=== PATIENT | male | born 1970 | race Caucasian/White ===

== ENCOUNTER 2017-06-23 22:38 | Emergency (ER) | payer OTHER ==
[2017-06-23 22:59] VITALS: RESP 18
[2017-06-23] MEDS ORDERED: IOPAMIDOL (ISOVUE 370) 100 ML BTL IV ONE (23:14)
--- NOTE | 2017-06-23 23:22 | EDPHY ---
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 He is currently resident at [facility]. Tonight while he was laying in bed, he developed some left posterior neck pain, then and left temporal headache as well as pain behind the left eye. It was sharp and constant, nonradiating. He then noticed that the left anterior portion of his neck "felt funny and became painful." Nurses checked his blood pressure which was systolic 160 and diastolic 100. He was given 2 Aleve and 2 Lisinopril tablets. Within 30 minutes he felt like his pain had decreased from 10/10 to 5/ 10. Currently taking aspirin daily. He is anxious as he is to be discharged home on Monday as he has been making great progress. Patient also reports that he worked really hard in physical therapy today may have over did it. Modifying Factors: Aleve and Lisinopril with moderate relief Comment: ROS: Eyes: No blurred vision Respiratory: No shortness of breath, no cough Cardiovascular: No chest pain Gastrointestinal: No nausea, no vomiting no diarrhea Genitourinary: No dysuria Extremities: No myalgias Neurologic: No weakness, no numbness Skin: No rashes Hematologic: No bruising, no bleeding MEDICAL/SURGICAL HISTORY: Mass cell activation syndrome, depression, allergic rhinitis Tonsillectomy, microdiskectomy (Priscilla Bang) Physical Exam: CONSTITUTIONAL: Pleasant adult white male, slightly anxious, awake and alert, no obvious distress HEENT: Atraumatic and normocephalic, PERRL, EOMI. Tympanic membranes clear. Oropharynx clear, no exudate and moist pink mucosa. Airway patent. No temporal tenderness. NECK: supple, mild left trapezius reproducible tenderness with palpation, no carotid bruits appreciated, No lymphadenopathy. No meningismus. Cardiovascular: Normal S1/S2, regular rate, regular rhythm, without murmur rub or gallop. PULMONARY/CHEST: Symmetrical and nontender. Clear to auscultation bilaterally Good air movement. No accessory muscle usage. ABDOMEN: Soft, nondistended, nontender, no rebound, no guarding, no peritoneal signs, no masses or organomegaly. No CVAT. EXTREMITIES: 2/2 pulses, no deformities, no clubbing, no cyanosis or edema. NEUROLOGICAL: GCS 15. Mild expressive aphasia noted. Did not test vision. SKIN: Warm and dry, no erythema. no rash. Good capillary refill. (Priscilla Bang) Constitutional: Initial Vital Signs Temperature (C) 36.5 C 06/23/17 22:57 Heart Rate 87 06/23/17 22:57 Respiratory Rate 18 06/23/17 22:57 Blood Pressure 156/95 H 06/23/17 22:57 O2 Sat (%) 96 06/23/17 22:57 O2 Delivery Mode Room Air Allergies/Adverse Reactions: divalproex sodium [From Depakote] Allergy (Unknown, Verified 04/23/16 10:58) Other-Enter Comments Home Medications: Medication Instructions Recorded LORAZEPAM 12/04/09 Nortriptyline HCl 12/04/09 Remeron 12/04/09 Cristel Allergy 04/23/16 Zantac 04/23/16 Aspirin 325 mg (*) 06/23/17 Lisinopril 5 mg PO DAILY #10 tablet 06/24/17 traMADol [Ultram 50 mg (*)] 50 mg PO Q4 PRN #12 tab 06/24/17 Medical Decision Making - Diagnostics Imaging Results: Imaging Impressions Head CTA 06/23/17 22:56 Impression: 1. Slight improvement in contrast opacification of the distal left vertebral artery with persistent occlusion/dissection from C1-C2 through the craniocervical junction. 2. Otherwise stable CT angio head and neck. Stenoses are calculated using [place] Symptomatic Carotid Endarterectomy Trial (NASCET) criteria. Findings discussed with Priscilla Bang 06/23/2017 at 2350. Neck CTA 06/23/17 22:57 Impression: 1. Slight improvement in contrast opacification of the distal left vertebral artery with persistent occlusion/dissection from C1-C2 through the craniocervical junction. 2. Otherwise stable CT angio head and neck. Stenoses are calculated using [place] Symptomatic Carotid Endarterectomy Trial (NASCET) criteria. Findings discussed with Priscilla Bang 06/23/2017 at 2350. ED Course/Re-evaluation: CTA head, CTA neck, IV medication, labs Appears to be at neurological baseline and blood pressure stable upon arrival. Given IV Dilaudid for headache Afebrile. no systemic signs. [id number] Brower, truer pinion and wheel for [facility]. Advised her of the negative CTA findings and that the patient's blood pressure now is 136/97. Goal blood pressure is less than or equal to 140/90. Will start low-dose lisinopril daily with close follow-up with primary care provider and Neurology. (Priscilla Bang) Differential Diagnosis: Headache including but not limited to progression of vertebral artery dissection , subarachnoid hemorrhage, migraine headache, tension headache and infectious causes such as meningitis, pharyngitis and sinusitis. (Priscilla Bang) Other Provider: ED PA DICTATION I evaluated and participated in the management of the patient. I also evaluated the patient independently. My co-signature indicates that I have reviewed this chart and I agree with the findings and plan of care as documented. My personal H&P findings include: 46-year-old male coming in from acute rehab with headache and neck pain, recently admitted to the hospital for vertebral artery dissection, received tPA, has been doing well at rehab. He has no new neurologic deficits. CTA of head and neck was performed showing no acute changes. Blood pressure was slightly elevated here. We have spoken with the rehab with plans for blood pressure control patient can be discharged. (Clementina Bonner) - Data Points Laboratory Results: 06/23/17 23:00 POC Hgb 16.3 gm/dL gm/dL (13.7-17.5) POC Hct 48 % % (40-51) POC Sodium 143 mEq/L mEq/L (134-144) POC Potassium 3.4 mEq/L mEq/L (3.3-5.0) POC Chloride 103 mEq/L mEq/L (97-110) POC BUN 13 mg/dL mg/dL (7-23) POC Creatinine 0.9 mg/dL mg/dL (0.7-1.3) POC Glucose 107 mg/dL H mg/dL (70-100) Medications Given: Discontinued Medications Hydromorphone HCl (Dilaudid) 0.5 mg IVP EDNOW ONE Stop: 06/23/17 23:26 Last Admin: 06/23/17 23:42 Dose: 0.5 mg Point of Care Test Results: 06/23/17 23:00 POC Sodium 143 POC Potassium 3.4 POC Chloride 103 POC BUN 13 POC Creatinine 0.9 POC Glucose 107 H Departure - Departure Disposition: Home, Routine, Self-Care Clinical Impression: History of dissection of artery, Elevated blood pressure reading Headache Qualifiers: Headache type: tension-type Headache chronicity pattern: acute headache Intractability: not intractable Qualified Code(s): G44.209 - Tension-type headache, unspecified, not intractable Clinical Impression: (Ruled Out): Vertebral artery dissection, History of chronic dissection of thoracic aorta Condition: Good Instructions: Hypertension (ED), General Headache (ED) Additional Instructions: Maintain your blood pressure equal to or less than 140/90. Take lisinopril 5 mg daily as needed for elevated blood pressure. Monitor blood pressure daily. Follow up with Neurology as scheduled. Referrals: Yair Arreola DO [Medical Doctor] - 1-2 days without fail Prescriptions: Lisinopril 5 mg PO DAILY #10 tablet traMADol [Ultram 50 mg (*)] 50 mg PO Q4 PRN #12 tab PRN Reason: Pain, Moderate
[2017-06-23] MEDS ORDERED: HYDROmorphONE/DILAUDID 1 MG/ML SYR IVP ONE (23:25)
[2017-06-24 00:24] VITALS: BP 138/93; PULSE 80; TEMP 97.9; O2SAT 96
== END 2017-06-24 00:52 | disposition home or self-care (01) ==
LOC: EDUNIT#
DX: G44.209 Tension-type headache, unspecified, not intractable (principal); R03.0 Elevated blood-pressure reading, without diagnosis of hypertension; Z79.82 Long term (current) use of aspirin; Z86.79 Personal history of other diseases of the circulatory system
CPT/HCPCS: 82947-QW; 96374; J1170; Q9967